=== PATIENT | male | born 1960 | race Caucasian/White ===

== ENCOUNTER 2017-08-14 21:40 | Emergency (ER) | payer OTHER ==
[~2017-08-14] VITALS: Ht 180.3 cm; Wt 74.8 kg
[2017-08-14 22:40] LABS: BASOPHIL % 0.2 % (0-2); PLATELET COUNT 205 x10^3mcL (130-400); RED CELL DISTRIBUTION WIDTH 13.6 % (11.5-14.5)
[2017-08-14 22:54] LABS: CALCIUM 8.8 mg/dL (8.5-10.1); CARBON DIOXIDE 28.4 mmol/L (21-32); CREATININE SERUM 1.5 mg/dL (0.7-1.3); POTASSIUM SERUM 4.3 mmol/L (3.5-5.1)
[2017-08-14 23:01] LABS: ALBUMIN 3.6 g/dL (3.4-5.0); BILIRUBIN TOTAL 0.3 mg/dL (0.20-1.00)
[2017-08-15 01:40] LABS: COLOR CSF COLORLESS
[2017-08-15 01:41] LABS: APPEARANCE CSF CLEAR; COLOR CSF COLORLESS; RBC CSF 0 /cumm (0); WBC CSF 2 /cumm (0-5)
[2017-08-15 01:42] LABS: RBC CSF 0 /cumm (0); WBC CSF 0 /cumm (0-5)
[2017-08-15 02:00] VITALS: BP 169/97
[2017-08-15 02:05] LABS: TOTAL PROTEIN CSF 40 mg/dL (15-45)
== END 2017-08-15 02:15 | disposition home or self-care (01) ==
LOC: ED 21:40
PROVIDERS: Emergency Medicine
DX: G44.89 Other headache syndrome (principal); G97.1 Other reaction to spinal and lumbar puncture; F17.210 Nicotine dependence, cigarettes, uncomplicated; Z71.6 Tobacco abuse counseling
CPT/HCPCS: 99406; J2405; J3010; J7030

== ENCOUNTER 2019-04-24 15:52 | Inpatient (IN) | payer MEDICAID ==
[~2019-04-24] VITALS: Ht 180.3 cm; Wt 68.7 kg
--- NOTE | 2019-04-24 17:00 | NUR ---
PER PT STS THAT HE WOKE UP AT 0400 WITH RLQ/RUQ PAIN THAT FEELS LIKE A PRESSURE PAIN. PT STS THAT HE HAS NAUSEA WITH NO VOMITING AT THIS TIME. PT STS THAT HAS DYSURIA AND THAT MOST THE TIME HE CANNOT URINTATE. PT DENIES ANY TEMP AT THIS TIME. +BOWEL SOUNDS ALL FOUR QUAD. NO DSITENTION NOTED AT THIS TIME. VSS. RESP E/U. WILL CONTINUE TO MONITOR.
--- NOTE | 2019-04-24 17:59 | NUR ---
PT TAKEN TO CT.
[2019-04-24 18:02] LABS: BASOPHIL % 0.3 % (0-2); PLATELET COUNT 192 x10^3mcL (130-400); RED CELL DISTRIBUTION WIDTH 13.3 % (11.5-14.5)
[2019-04-24 18:12] LABS: CALCIUM 8.6 mg/dL (8.5-10.1); CARBON DIOXIDE 27.2 mmol/L (21-32); CREATININE SERUM 1.7 mg/dL (0.7-1.3); POTASSIUM SERUM 3.8 mmol/L (3.5-5.1)
[2019-04-24 18:17] LABS: ALBUMIN 3.4 g/dL (3.4-5.0); BILIRUBIN TOTAL 0.8 mg/dL (0.20-1.00); TOTAL PROTEIN, SERUM 6.5 g/dL (6.4-8.2)
--- NOTE | 2019-04-24 18:24 | NUR ---
PT RETURNED FROM CT.
--- NOTE | 2019-04-24 19:18 | NUR ---
REPORT GIVEN TO GENEVA CHILDRESS TO ASSUME CARE OF PT. GENEVA CHILDRESS MADE AWARE OF NO END TIMES ON NS FLUIDS.
[2019-04-24 19:21] LABS: microscopic required? YES; urine erythrocyte 3+ (NEGATIVE)
--- NOTE | 2019-04-24 20:52 | NUR ---
ROLDAN CATH INSERTED,#16, INITIAL DRAINAGE IS 800 ML.
--- NOTE | 2019-04-24 21:17 | NUR ---
PATIENT IS SLEEPING, NO DISTRESS.
[2019-04-24 23:09] LABS: CHOLESTEROL/HDL RATIO 2.2; MAGNESIUM 1.8 mg/dL (1.8-2.4); PHOSPHOROUS 2.9 mg/dL (2.5-4.9)
--- NOTE | 2019-04-24 23:10 | NUR ---
REPORT WAS GIVEN TO MARIA DEL ROSARIO. PATIENT WILL BE TRANSPORTED TO ROOM 254A. PATIENT REQUESTED FOOD MD CARDENAS, PATIENT WAS GIVEN A SANDWICH.
[2019-04-24 23:50] VITALS: BP 120/71
--- NOTE | 2019-04-24 23:58 | NUR ---
RECEIVED FROM ER, TRANSPORTED VIA [facility]. AMBULATORY WITH STEADY GAIT. AWAKE AND ALERT, ORIENTED TO NAME, PLACE, TIME, AND SITUATION. SPEECH CLEAR AND APPROPRIATE. BREATHING EVEN AND UNLABORED ON ROOM AIR. SALINE LOCK TO LEFT FOREARM, FREE FROM ERYTHEMA OR SWELLING. ROLDAN CATH DRAINING YELLOW, CLOUDY URINE. INSTRUCTED ON USE OF CALL LIGHT TO CALL FOR ASSISTANCE, PLACED WITHIN EASY REACH. ENDORSED TO NURSE MICHEL.
--- NOTE | 2019-04-25 00:04 | NUR ---
RECEIVED REPORT FROM MARIA DEL ROSARIO CHILDRESS FOR CONTINUATION OF CARE. PATIENT RESTING IN BED. RESPIRATION EVEN AND UNLABORED, ON ROOM AIR. IV SITE PATENT AND INTACT. ROLDAN CATHETER TO GRAVITY IN PLACED. DENIES PAIN AT THIS TIME. WILL CONTINUE TO MONITOR.
[2019-04-25 00:51] LABS: AMPHETAMINE QUAL UR POSITIVE (See below)
[2019-04-25 05:03] VITALS: BP 156/89
--- NOTE | 2019-04-25 05:59 | NUR ---
PATIENT RESTING IN BED. RESPIRATION EVEN AND UNLABORED, ON ROOM AIR. COMPLAINED OF ABDOMINAL PAIN, 5/10. MEDICATED WITH NORCO 5/325 MG PO. IV SITE NO SIGN OF INFILTRATION. ASSISTED WITH NEEDS. SAFETY OBSERVED. PLACED BED IN THE LOWEST POSITION. PLACED CALL LIGHT WITHIN REACH AT ALL TIMES.
[2019-04-25 06:48] LABS: PLATELET COUNT 186 x10^3mcL (130-400); RED CELL DISTRIBUTION WIDTH 13.4 % (11.5-14.5)
[2019-04-25 06:55] LABS: BASOPHIL % 0 % (0-2)
--- NOTE | 2019-04-25 07:05 | NUR ---
RECEIVED PT FROM NIGHT NURSE. PT IS LAYING DOWN IN BED WITH HOB UP RESTING WITH EYES CLOSED. PT LOOKS TO BE IN NO ACUTE DISTRESS AT THIS TIME. IV SITE PATENT WITH NO SIGNS OF ERYTHEMA OR SWELLING WITH IV FLUIDS INFUSING. RESPIRATIONS EVEN AND UNLABORED ON ROOM AIR. CALL LIGHT WITHIN REACH, BED IN LOWEST POSITION, WILL CONITNUE TO MONITOR.
[2019-04-25 07:31] LABS: CALCIUM 8.1 mg/dL (8.5-10.1); CARBON DIOXIDE 25.1 mmol/L (21-32); CREATININE SERUM 1.5 mg/dL (0.7-1.3); MAGNESIUM 1.6 mg/dL (1.8-2.4); PHOSPHOROUS 2.3 mg/dL (2.5-4.9); POTASSIUM SERUM 3.9 mmol/L (3.5-5.1)
[2019-04-25 09:24] VITALS: BP 123/75
--- NOTE | 2019-04-25 16:20 | NUR ---
PT IS LAYING DOWN IN BED WITH HOB UP RESTING WITH EYES CLOSED. PT LOOKS TO BE IN NO ACUTE DISTRESS AT THIS TIME. RESPIRATIONS EVEN AND UNLABORED ON ROOM AIR. IV SITE PATENT WITH NO SIGNS OF ERYTHEMA OR SWELLING WITH IV FLUIDS INFUSING. CALL LIGHT WITHIN REACH. WILL CONTINUE TO MONITOR.
[2019-04-25 16:53] VITALS: BP 111/61
--- NOTE | 2019-04-25 18:53 | NUR ---
PT IS LAYING DOWN IN BED WITH HOB UP RESTING. PT LOOKS TO BE IN NO ACUTE DISTRESS AT THIS TIME AND DENIES ANY PAIN. IV SITE PATENT WITH NO SIGNS OF ERYTHEMA OR SWELLING WITH IV FLUIDS INFUSING. ROLDAN DRAINING DARK YELLOW/ ORANGE URINE. RESPIRATIONS EVEN AND UNLABORED ON ROOM AIR. CALL LIGHT WITHIN REACH. WILL ENDORSE TO ONCOMING SHIFT
--- NOTE | 2019-04-25 20:00 | NUR ---
RECEIVED PT IN BED, ALERT AND ORIENTED. DENIES HEADACHE/DIZZINESS. RESP. EVEN AND UNLABORED. ON ROOM AIR, NO ACUTE DISTRESS NOTED. AFEBRILE AND VITAL SIGNS STABLE. DENIES PAIN OR ANY DISCOMFORT AT THIS TIME. IVF, NS AT 100ML/HR, INTACT AND INFUSING VIA LAC, SITE CLEAR. ROLDAN CATH INTACT AN DDRAINING PINKISH COLOR URINE. ABD. SOFT, NON DISTENDED, BS ACTIVE. NO N/V NOTED. CALL LIGHT WITHIN REACH. WILL CONTINUE TO MONITOR.
[2019-04-25 20:20] VITALS: BP 131/77
--- NOTE | 2019-04-26 01:43 | NUR ---
NO COMPLAINTS NOTED AT THIS TIME. EYES CLOSED, APPEARS ASLEEP, EASILY AROUSABLE. IVF INTACT AND INFUSING WELL, SITE CLEAR. CALL LIGHT WITHIN REACH. WILL CONTINUE TO MONITOR.
--- NOTE | 2019-04-26 04:20 | NUR ---
AWAKE,COMPLAINING OF HEADACHE, 4/10, MEDICATED WITH TYLENOL ORDERED WITH RELIEF. WILL CONTINUE TO MONITOR.
[2019-04-26 05:08] VITALS: BP 138/80
--- NOTE | 2019-04-26 06:32 | NUR ---
ALEBRILE AND VITAL SIGNS STABLE. RESP. EVEN AND UNLABORED. NO ACUTE DISTRESS NOTED. SLEPT WELL. NO COMPLAINTS NOTED AT THIS TIME. DENIES PAIN OR ANY DISCOMFORT. IVF INTACT AND INFUSING WELL, SITE CLEAR. ROLDAN CATH INTACT AND DRAINING ORANGE/TEA.COLOR URINE. CALL LIGHT WITHIN REACH. WILL CONTINUE TO MONITOR.
[2019-04-26 06:45] LABS: BASOPHIL % 0.1 % (0-2); PLATELET COUNT 181 x10^3mcL (130-400); RED CELL DISTRIBUTION WIDTH 13.3 % (11.5-14.5)
[2019-04-26 06:59] LABS: CALCIUM 8.1 mg/dL (8.5-10.1); CARBON DIOXIDE 26.9 mmol/L (21-32); CREATININE SERUM 1.5 mg/dL (0.7-1.3); MAGNESIUM 1.8 mg/dL (1.8-2.4); PHOSPHOROUS 2.4 mg/dL (2.5-4.9); POTASSIUM SERUM 3.6 mmol/L (3.5-5.1)
--- NOTE | 2019-04-26 07:10 | NUR ---
RECIEVED PT FROM NIGHT NURSE. PT IS LAYING DOWN IN BED WITH HOB UP RESTING WITH EYES CLOSED. PT LOOKS TO BE IN NO ACUTE DISTRESS AT THIS TIME TIME. RESPIRATIONS EVEN AND UNLABORED ON ROOM AIR. IV SITE PATENT WITH NO SIGNS OF ERYTHEMA OR SWELLING WITH IV FLUIDS INFUSING. ROLDAN CATHETER PRESENT DRAINING DARK YELLOW/ ORANGE URINE. CALL LIGHT WITHIN REACH. BED IN LOWEST POSITION, WILL CONTINUE TO MONITOR.
[2019-04-26 08:31] VITALS: BP 118/71
--- NOTE | 2019-04-26 11:50 | NUR ---
PT COMPLAINING OF FEELING NAUSEATED AND SOME ABD PAIN 10/29. PT REQUESTING MEDICATION, WILL MEDICATE ACCORDING TO EMAR.
--- NOTE | 2019-04-26 16:15 | NUR ---
PT REQUESTING TO SHOWER. WRAPPED IV AND PROVIDED PT WITH CLEAN TOWELS AND GOWN, NOTIFIED PT OF CALL LIGHT IN BATHROOM, HUNG ROLDAN CATHETER OUTSIDE OF SHOWER. CHANGED SHEETS DURING SHOWER. PT NOW BACK IN BED AND IV RECONNECTED. PT LOOKS TO BE IN NO ACUTE DISTRESS AT THIS TIME. WILL CONTINUE TO MONITOR.
[2019-04-26 16:41] VITALS: BP 108/74
--- NOTE | 2019-04-26 18:47 | NUR ---
PT IS LAYING DOWN IN BED WITH HOB UP RESTING. PT LOOKS TO BE IN NO ACUTE DISTRESS AT THIS TIME AND DENIES ANY PAIN. RESPRIATIONS EVEN AND UNLABORED ON ROOM AIR. IV SITE PATENT WITH NO SIGNS OF ERYTHEMA OR SWELLING WITH IV FLUIDS INFUSING. ROLDAN CATHETER DRAINING ORANGE COLORED URINE. CALL LIGHT WITHIN REACH. WILL ENDORSE TO ONCOMING SHIFT.
--- NOTE | 2019-04-26 19:40 | NUR ---
RECIEVED PT IN NO ACUTE DISTRESS. AOX4. MED SURG. BREATHING E/U. ROLDAN CATHETER IN PLACE WITH ORANGE COLORED URINE. C/O NAUSEA, WILL MEDICATE PER EMAR. DENIES PAIN. IV TO LAC, PATENT. BED IN LOWEST POSITION, 2 SIDE RAILS UP, CALL LIGHT IN REACH. INSTRUCTED TO CALL FOR ASSISTANCE.
[2019-04-26 20:49] VITALS: BP 136/82
--- NOTE | 2019-04-27 00:30 | NUR ---
RESTING IN BED WITH EYES CLOSED. BREATHING E/U. NO ACUTE DISTRESS NOTED. WILL CONTINUE TO MONITOR.
[2019-04-27 04:50] VITALS: BP 130/78
--- NOTE | 2019-04-27 06:24 | NUR ---
NO ACUTE CHANGES. NO ACUTE DISTRESS NOTED. WILL ENDORSE TO ONCOMING RN.
--- NOTE | 2019-04-27 07:05 | NUR ---
AAO X4.C/O MILD DISCOMFORT ON LLQ ABD.LUNGS CLEAR.PT ONON-TELE.IVF NS GOING AT 100 ML/HR INFUSING WELL.ROLDAN DRAINING TO GRAVITY ORANG IN COLOR.CALL LIGHT WITHIN REACH.INSTRUCTED TO CALL FOR ANY PAIN/DISCOMFORT.WILL CONTINUE TO MONITOR.
[2019-04-27 07:09] LABS: PLATELET COUNT 184 x10^3mcL (130-400); RED CELL DISTRIBUTION WIDTH 13.1 % (11.5-14.5)
[2019-04-27 07:10] LABS: CALCIUM 8.1 mg/dL (8.5-10.1); CARBON DIOXIDE 26.4 mmol/L (21-32); CHLORIDE SERUM 104 mmol/L (98-107); CREATININE SERUM 1.3 mg/dL (0.7-1.3); GFR1 > 60 mL/min; GLUCOSE SERUM 125 mg/dL (74-106); MAGNESIUM 1.4 mg/dL (1.8-2.4); PHOSPHOROUS 2.3 mg/dL (2.5-4.9); POTASSIUM SERUM 3.8 mmol/L (3.5-5.1); SODIUM SERUM 139 mmol/L (136-145)
[2019-04-27 07:30] LABS: BASOPHIL % 0 % (0-2)
[2019-04-27 08:49] VITALS: BP 119/65
--- NOTE | 2019-04-27 10:00 | NUR ---
SPOKE WITH PT'S SISTER ROLA.WANTED TO SPEAK TO THE DR ,REGARDING PT'S D/C.WILL INFORM .
[2019-04-27 10:32] VITALS: Ht 180.3 cm; Wt 68.7 kg
--- NOTE | 2019-04-27 11:30 | NUR ---
INFORMED THAT PT'S SISTER WANTED TO TALK TO HER.GAVE PT'S SISTER PHONE #
[2019-04-27 16:50] VITALS: BP 120/74
--- NOTE | 2019-04-27 18:38 | NUR ---
NO DIGNIFICANT CHANGE NOTED.WILL ENDORSE TO NEXT SHIFT.
--- NOTE | 2019-04-27 19:30 | NUR ---
PT RECEIVED FROM DAY NURSE. PT RESTING IN BED AT THIS TIME. STATES ABD PAIN AT THIS TIME. WILL MEDICATE PER EMAR. A/O X4, CALM AND COOPERATIVE AT THIS TIME. PT MS, DENIES CP, NV, DIZZINESS, AND PALPATIONS. PALPABLE PULSES, NO EDEMA NOTED AT THIS TIME. BREATHING E/U ON RA, DENIES SOB. ABD SOFT AND ROUND, DENIES PAIN TO PALPATION. GENERALIZED WEAKNESS, AMBULATORY AT BASELINE. ROLDAN DRAINING TO GRAVITY. IV TO LAC, INTACT AND INFUSING. BED AT LOWEST POSITION. CALL LIGHT WITHIN REACH. WILL CONTINUE TO MONITOR.
[2019-04-27 21:21] VITALS: BP 152/84
--- NOTE | 2019-04-28 00:21 | NUR ---
PT RESTING IN BED AT THIS THIS TIME. NO S/S OF PAIN OR DISTRESS NOTED THIS TIME. BREATING E/U ON RA. NO SIGNS OF ACUTE DISTRESS NOTED AT THIS TIME. WILL CONTINUE TO MONITOR.
--- NOTE | 2019-04-28 04:15 | NUR ---
PT COMPLAINING OF 6/10 ABD PAIN. MEDICATED WITH PRN NORCO. WILL CONTINUE TO MONITOR.
[2019-04-28 05:27] VITALS: BP 134/65
[2019-04-28 06:33] LABS: BASOPHIL % 0.5 % (0-2); CALCIUM 8.3 mg/dL (8.5-10.1); CARBON DIOXIDE 26.2 mmol/L (21-32); CHLORIDE SERUM 105 mmol/L (98-107); CREATININE SERUM 1.2 mg/dL (0.7-1.3); GFR1 > 60 mL/min; GLUCOSE SERUM 166 mg/dL (74-106); MAGNESIUM 1.7 mg/dL (1.8-2.4); PHOSPHOROUS 2.9 mg/dL (2.5-4.9); PLATELET COUNT 229 x10^3mcL (130-400); POTASSIUM SERUM 3.8 mmol/L (3.5-5.1); RED CELL DISTRIBUTION WIDTH 13.6 % (11.5-14.5); SODIUM SERUM 139 mmol/L (136-145)
--- NOTE | 2019-04-28 06:51 | NUR ---
PT RESTING IN BED AT THIS TIME. DENIES PAIN OR DISCOMFORT. BREATHING E/U ON RA. NO SIGNS OF ACUTE DISTRESS NOTED AT THIS TIME. ALL NEEDS AND CONCERNS ADDRESSED. WILL ENDORSE TO DAY NURSE.
--- NOTE | 2019-04-28 08:00 | NUR ---
A&OX4, FOLLOWS COMMANDS. PERIPHERAL PULSES PALPABLE, WITH NO SIGN OF EDEMA. LUNG SOUNDS CTA BILATERALLY, ON RA, O2 SAT 96%. NORMOACTIVE BS X4, HAS NOT HAD A BM SINCE 04/23. ROLDAN CATHETER DRAINING ORANGE URINE DUE TO ROCEPHIN. GENERALIZED WEAKNESS. COOPERATES WELL.
[2019-04-28 09:27] VITALS: BP 139/80
[2019-04-28] MEDS ORDERED: PROS5 PO (14:35)
[2019-04-28] MEDS ORDERED: FLO4 PO (14:35)
[2019-04-28] MEDS ORDERED: LEVOFLOXACIN500 M1 PO (14:45)
[2019-04-28 15:04] VITALS: BP 139/80
--- NOTE | 2019-04-28 16:20 | NUR ---
PT'S ROLDAN CATHETER BAG CHANGED TO LEG BAG. PATIENT INSTRUCTED ON DRAINING BAG AT HOME, CLEANING JOYCELYN AREA, AND SIGNS OF LEAKAGE IN CERTAIN PARTS OF BAG. PATIENT PROVIDED WITH HOME SUPPLIES SUCH EXTRA LEG BAG, URINAL AND JOYCELYN CARE WIPES. INSTRUCTED ON IMPORTANCE OF JOYCELYN CARE WITH SOAP AND WATER TO ROLDAN INSERTION SITE TO PREVENT URINARY TRACT INFECTION.
[2019-04-28 16:23] VITALS: BP 139/80
--- NOTE | 2019-04-28 16:48 | NUR ---
PT PROVIDED WITH DISCHARGE HOME INSTRUCTIONS. PATIENT RECEIVED DISCHARGE HANDOUTS INCLUDING NEXT APPOINTMENT DATE ON 05/04/19, MEDICATION PRESCRIPTIONS, EDUCATIONAL HANDOUTS ON ROLDAN CATHETER AND MEDICATIONS. IV CATHETER INTACT UPON D/C. REVIEWED ROLDAN CARE INSTRUCTIONS AND PATIENT VERBALIZED UNDERSTANDING. PATIENT WILL CALL WHEN READY TO BE TAKEN DOWN TO THE LOBBY TO AWAIT CAB TRANSPORTATION PROVIDED BY [employer].
--- NOTE | 2019-04-28 16:59 | NUR ---
PATIENT TRANSFERRED TO [facility] TO AWAIT CAB VIA WHEEL CHAIR WITH NO APPARENT DISTRESS WITH ALL PERSONAL BELONGINGS IN HAND.
== END 2019-04-28 17:02 | disposition home or self-care (01) | DRG 720 ==
LOC: ED 15:52 → MU 22:21
PROVIDERS: Emergency Medicine; ADMIT Internal Medicine
DX: A41.9 Sepsis, unspecified organism (principal); N17.0 Acute kidney failure with tubular necrosis; N39.0 Urinary tract infection, site not specified; N40.1 Benign prostatic hyperplasia with lower urinary tract symptoms; R33.8 Other retention of urine; B95.2 Enterococcus as the cause of diseases classified elsewhere; F12.10 Cannabis abuse, uncomplicated; F17.210 Nicotine dependence, cigarettes, uncomplicated; Z68.25 Body mass index [BMI] 25.0-25.9, adult
CPT/HCPCS: 90658; 99406; G0378; J0696; J1885; J2405; J7030; Q0092

== ENCOUNTER 2019-12-17 15:42 | Emergency (ER) | payer MEDICAID ==
[~2019-12-17] VITALS: Ht 180.3 cm; Wt 79.4 kg
[~2019-12-17 15:42] MED LIST: FLO4 PO; LEVOFLOXACIN500 M1 PO; PROS5 PO
[2019-12-17 15:52] VITALS: Ht 180.3 cm; Wt 79.4 kg
[2019-12-17 18:44] VITALS: BP 117/80
== END 2019-12-17 18:44 | disposition home or self-care (01) ==
LOC: ED 15:42
DX: R33.9 Retention of urine, unspecified (principal); Z46.6 Encounter for fitting and adjustment of urinary device; Z90.89 Acquired absence of other organs
CPT/HCPCS: J3010

== ENCOUNTER 2020-01-07 20:08 | Emergency (ER) | payer MEDICAID ==
[~2020-01-07] VITALS: Ht 180.3 cm; Wt 77.1 kg
[2020-01-07 20:17] VITALS: Ht 180.3 cm; Wt 77.1 kg
[2020-01-07 23:45] VITALS: BP 131/79
== END 2020-01-07 23:45 | disposition home or self-care (01) ==
LOC: ED 20:08
DX: N39.0 Urinary tract infection, site not specified (principal)
CPT/HCPCS: J0696

== ENCOUNTER 2020-01-26 01:05 | Emergency (ER) | payer SELFPAY ==
[~2020-01-26] VITALS: Ht 154.9 cm; Wt 73.9 kg
[2020-01-26 01:12] VITALS: Ht 154.9 cm; Wt 73.9 kg
[2020-01-26 02:29] VITALS: BP 128/93
[2020-01-26 03:20] LABS: UA SPECIFIC GRAVITY <=1.005 (1.005-1.035); microscopic required? YES; urine erythrocyte 3+ (NEGATIVE)
== END 2020-01-26 02:29 | disposition home or self-care (01) ==
LOC: ED 01:05
PROVIDERS: Emergency Medicine
DX: N39.0 Urinary tract infection, site not specified (principal); F17.210 Nicotine dependence, cigarettes, uncomplicated